=== PATIENT | female | born 1945 | race Caucasian/White ===

== ENCOUNTER 2024-09-06 05:40 | Day surgery (SDC) | payer MEDICARE, OTHER ==
[2024-09-04 08:35] VITALS: BP 169/78
[~2024-09-06] VITALS: Ht 162.6 cm; Wt 75.6 kg
[~2024-09-06 05:40] MED LIST: ALEVE220 M1 PO; ASPIRIN EC81 MG PO; ATORVASTATIN CA80 MG PO; B12 ACTIVE1000 MCG PO; CITRUCEL500 MG PO; CRESTOR40 MG PO; DAILY VITAMIN1 EAC2 PO; HYDROCHLOROTHIA25 MG PO; LEVOTHYROXINE25 MCG PO; LISINOPRIL5 MG PO; MIRALAX17 GM PO; NORCO 7.5-3251 EACH PO; OSTERA TABLET1 EACH PO; PREDNISONE10 MG PO; PRILOSEC10 MG PO
[2024-09-06 06:03] VITALS: BP 173/75
[2024-09-06] MEDS ORDERED: propofoL 200 MG/20 ML VIAL ONE (06:37)
[2024-09-06] MEDS ORDERED: LACTATED RINGER'S 1,000 ML IV SCH (07:00)
[2024-09-06] MEDS ORDERED: LIDOCAINE HCL 1% 5 ML SDV INJ ONE (07:00)
[2024-09-06] MEDS ORDERED: methylPREDNISolone SOD SUCC 40 MG/ML VIAL IV SCH (07:00)
[2024-09-06] MEDS ORDERED: IBLOOD GLUCOSE TEST STRIP 1 EA TEST VI PRN (07:00)
--- NOTE | 2024-09-06 07:27 | NUR ---
PT GONE FOR PROCEDURE. PROVIDED PRAYER.
[2024-09-06] MEDS ORDERED: LACTATED RINGER'S 1,000 ML IV ONE (08:01)
--- NOTE | 2024-09-06 08:15 | NUR ---
09/06/24 0815 Victorina Perez 0810-PATIENT ARRIVED TO PACU ON 8L MASK NONAROUSABLE ORAL AIRWAY IN PLACE LAYING LEFT LATERAL. PLACED ON 6L MASK RR EVEN. ABDOMEN SOFT. IVF INFUSING. SR WITH PVC.
[2024-09-06 08:51] VITALS: BP 169/73
--- NOTE | 2024-09-07 06:00 | OR ---
[facility] [address] [place], [place] [address] Signed DATE OF OPERATION: 09/06/2024 SURGEON: Brant Leal MD PREOPERATIVE DIAGNOSES: 1. Anemia. 2. Chronic constipation. 3. Gastroesophageal reflux disease. 4. Hyperplastic polyp in 2010 at age 65. 5. Internal hemorrhoids. POSTOPERATIVE DIAGNOSES: 1. Tiny hiatal hernia. 2. Moderate pandiverticulosis. 3. Tortuous colon. 4. Moderate internal hemorrhoids. PROCEDURES: 1. EGD with CLOtest and biopsies of the antrum. 2. Colonoscopy without biopsies. ESTIMATED BLOOD LOSS: None. INDICATIONS: Laura is an 79-year-old female, who was asked to see me for both upper and lower endoscopy. Her hemoglobin level has been slowly declining over multiple blood draws. Went as low as 11.7 with a mean cell volume of 89. Her preop hemoglobin was 12.1. She describes no upper or lower GI complaints. She talks about chronic constipation for which she uses some MiraLAX on a daily basis. She talks about acid reflux and has been on omeprazole. She had her gallbladder [place] [address] Miles.. She had a little diarrhea after that. I helped her in 2009 at the age of 65 with the diarrhea and some weight loss. The Flagyl made no difference. The cholestyramine seemed to help. Her stool studies were negative. She had a tiny hyperplastic polyp removed from the colon and was noted to have some internal hemorrhoids. She now has polymyalgia rheumatica and has been on a long prednisone taper. She gives no family history of colon cancer or polyps. She had a negative Cologuard test in 2020. She remains with good functional status. She always comes with either her friend or her sister. In the office, I gave her pamphlets on both upper and lower endoscopy. We had reviewed those together. She understands the nature of the two tests. There is risk including, but Electronically Signed By: BRANT LEAL MD 09/07/24 0600 PATIENT NAME: LAURA COOPER OPERATIVE REPORT DATE OF : 43 REPORT #: [id number] PHYSICIAN: BRANT LEAL MD PCP: SON LA MD REPORT IS CONFIDENTIAL AND NOT TO BE RELEASED WITHOUT AUTHORIZATION [facility] [address] [place] [id number] Signed not limited to gas bloating, crampy abdominal pain, bleeding, perforation requiring surgery, and missed diagnosis. We also reviewed the written instructions for bowel prep line by line. It is the same bowel prep she took back in 2009. Also, she does have a very full round face and has been on a long prednisone taper. Therefore, we asked for monitored anesthesia care with propofol infusion. She did receive some Solu-Medrol preoperative as well. She understands an adult person has to take her home afterwards. She had expressed understanding and wished to proceed. PROCEDURE IN DETAIL: Laura was taken into our endoscopy suite and placed in a supine semi-recumbent position. A bite block was utilized for the upper endoscopy. She was given monitored anesthesia care with propofol infusion per our nurse hospice team lead. The adult gastroscope was introduced and advanced under direct visualization of camera without difficulty. The duodenum and pyloric channel were unremarkable. Her distal stomach was unremarkable. We went ahead and took a biopsy from the antrum for CLOtest as well as pathologic review. Upon retroflexion of the scope, she has standard polyps from using her proton pump inhibitor. It was difficult, but she probably has just a very tiny hiatal hernia. It is better seen from above than below. The Z-line really is more or less intact. There is no Clifton's mucosa. There is no distal esophagitis. There were no ulcerations. The middle and upper esophagus were unremarkable. After this, the gas was suctioned out and the gastroscope removed. Laura tolerated the upper scope quite well. Laura was rotated into the left lateral decubitus position. She was maintained on propofol infusion per our nurse hospice team lead. A digital rectal exam was performed and this was unremarkable. No external hemorrhoids. She had good sphincter tone. There were no masses. The adult colonoscope was introduced and advanced all around into the cecum under direct visualization of the camera. It took some extra time to get through her tortuous sigmoid and left colon. We needed little abdominal compression. We finally got around the hepatic flexure and down into the cecum itself. Her prep was quite good. We could easily see the appendiceal orifice and ileocecal valve. The scope was then slowly withdrawn. She does have moderate pandiverticulosis. Her diverticula are moderate in size, moderate in number and scattered about. We came back to a tortuous left and sigmoid colon. The rectum was unremarkable. She had no polyps. Upon retroflexion of the scope, she has moderate internal hemorrhoid columns. After this, the gas was suctioned out and the colonoscope removed. Laura tolerated the procedure quite well. RECOMMENDATIONS: I will see Laura back in my office in 7 to 14 days to review her results. Electronically Signed By: BRANT LEAL MD 09/07/24 0600 PATIENT NAME: LAURA COOPER KARIME OPERATIVE REPORT DATE OF : 43 REPORT #: [id number] PHYSICIAN: BRANT LEAL MD PCP: SON LA MD REPORT IS CONFIDENTIAL AND NOT TO BE RELEASED WITHOUT AUTHORIZATION [facility] [address] [place] [address] Signed Brant Leal MD ALB/MODL /[id number] cc: MD Hannah Vo MD Robert G Johnson, MD Copies: BRANT LEAL MD, LESLIE MD JOHNSON, ROBERT D DMD ~ Electronically Signed By: BRANT LEAL MD 09/07/24 0600 PATIENT NAME: LAURA COOPER OPERATIVE REPORT DATE OF : 43 REPORT #: [id number] PHYSICIAN: BRANT LAEL MD PCP: SON LA MD REPORT IS CONFIDENTIAL AND NOT TO BE RELEASED WITHOUT AUTHORIZATION
--- NOTE | 2024-09-07 15:34 | PATH ---
[facility] [address] [facility], [place] [address] Signed SPECIMEN(S): A ANTRUM BIOPSY SPECIMEN SOURCE: A. ANTRUM BIOPSY CLINICAL HISTORY: Anemia, GERD, constipation, hiatal hernia, diverticulosis FINAL PATHOLOGIC DIAGNOSIS: Stomach, antrum, biopsy: - Gastric antral and oxyntic mucosa with no significant pathologic changes - Negative for Helicobacter pylori with HE stains BRP MICROSCOPIC EXAMINATION: Histologic sections of all submitted blocks are examined by light microscopy. These findings, together with the gross examination, support the pathologic diagnosis. GROSS DESCRIPTION: The specimen, labeled and designated "Leo, antrum biopsy," is received in formalin and consists of one boo soft tissue fragment, 0.6 cm. Entirely submitted in (A1). VB (under the direct supervision of a pathologist) The Gross Description was prepared using a voice recognition system. The report was reviewed for accuracy; however, sound-alike word errors, addition and/or deletions may occur. If there is any question about this report, please contact Client Services. ADDITIONAL NOTES: Immunohistochemical and/or in situ hybridization studies if performed in this case included appropriate positive controls that reacted as expected. This test was developed and its performance characteristics determined by [facility]. It has not been cleared or approved by the U.S. Food and Drug Administration. The FDA has determined that such clearance or approval is not necessary. This test is used for clinical purposes. It should not be regarded as investigational or for research. [facility] is certified under the Clinical Laboratory Improvement Amendments of 1988 (CLIA) as qualified to perform high complexity clinical laboratory testing. PATIENT NAME: LAURA COOPER PATHOLOGY DATE OF : 43 REPORT #: [id number] PHYSICIAN: GLORIA PATHOLOGY PCP: SON LA MD REPORT IS CONFIDENTIAL AND NOT TO BE RELEASED WITHOUT AUTHORIZATION [address] [place], [place] [address] Signed PERFORMING LABORATORY: Technical component was performed by [facility], [address] [place] [address] (CLIA# [id number]). Professional interpretation was performed by [facility] [address] [place] [id number] Diagnostician: Jovanny Flores MD Pathologist Electronically Signed 09/07/2024 Copies: ~ PATIENT NAME: LAURA COOPER PATHOLOGY DATE OF : 43 REPORT #: [id number] PHYSICIAN: GLORIA FIELDS PCP: SON LA MD REPORT IS CONFIDENTIAL AND NOT TO BE RELEASED WITHOUT AUTHORIZATION
== END 2024-09-06 08:55 | disposition home or self-care (01) ==
LOC: DS 05:40
PROVIDERS: ATTEND Colon & Rectal Surgery
PROC: 0DJD8ZZ Inspection of Lower Intestinal Tract, Via Natural or Artificial Opening Endoscopic (ICD-10-PCS; principal; 2024-09-06 07:30)
PROC: 0DB68ZX Excision of Stomach, Via Natural or Artificial Opening Endoscopic, Diagnostic (ICD-10-PCS; 2024-09-06 07:30)
DX: D64.9 Anemia, unspecified (principal); K59.09 Other constipation; K21.9 Gastro-esophageal reflux disease without esophagitis; K44.9 Diaphragmatic hernia without obstruction or gangrene; K57.30 Diverticulosis of large intestine without perforation or abscess without bleeding; K64.8 Other hemorrhoids; K63.89 Other specified diseases of intestine; M35.3 Polymyalgia rheumatica; I12.9 Hypertensive chronic kidney disease with stage 1 through stage 4 chronic kidney disease, or unspecified chronic kidney disease; N18.30 Chronic kidney disease, stage 3 unspecified; E78.2 Mixed hyperlipidemia; E03.9 Hypothyroidism, unspecified; E66.9 Obesity, unspecified; Z68.28 Body mass index [BMI] 28.0-28.9, adult; Z86.0101 Personal history of adenomatous and serrated colon polyps; Z87.891 Personal history of nicotine dependence; Z79.82 Long term (current) use of aspirin; Z79.890 Hormone replacement therapy; Z79.899 Other long term (current) drug therapy; Z90.49 Acquired absence of other specified parts of digestive tract
CPT/HCPCS: 00813; 36415; 87077; 88305; J2704; J2919; J7121

== ENCOUNTER 2025-03-27 15:00 | Emergency (ER) | payer MEDICARE, OTHER ==
[~2025-03-27] VITALS: Ht 162.6 cm; Wt 67.0 kg
--- NOTE | ~2025-03-27 | EKG ---
[facility] [address] [facility] [place], [place] [address] Draft EK completed, results pending confirmation PATIENT NAME: LAURA COOPER Electrocardiogram DATE OF : 43 PHYSICIAN: PRELIMINARY REPORT #: [id number] REPORT IS CONFIDENTIAL AND NOT TO BE RELEASED WITHOUT AUTHORIZATION
[2025-03-27] MEDS ORDERED: METOPROLOL SUCC25 MG PO (15:19)
[2025-03-27] MEDS ORDERED: CLOPIDOGREL75 MG PO (15:19)
[2025-03-27] MEDS ORDERED: NITROGLYCERIN0.4 MG SL (15:19)
--- OUTSIDE RECORDS SUMMARY | 2025-03-27 15:22 | XMS ---
PreManage Notification: LAURA COOPER Security Rib Knitter Events No recent Security Events currently on file CRITERIA MET - - 2 Visits in 30 Days CARE PROVIDERS There are no care providers on record at this time. Ranjeet has no Care Guidelines for this patient. [facility] (12 MO.) [facility] NOTE: Visits indicate total known visits. [place] [place] (12 MO.) [facility]25 15[facility] [place] [facility] COMPLAINT: - SHORTNESS OF BREATH 03/13/2025 11:47 [facility] [place] TYPE: Emergency COMPLAINT: - CHEST PAIN DIAGNOSES: - Chest pain, unspecified - Essential (primary) hypertension - Gastro-esophageal reflux disease without esophagitis - MCFP (current) use of aspirin - Non-ST elevation (NSTEMI) myocardial infarction - Other mcc (current) drug therapy - Personal history of nicotine dependence - Pure hypercholesterolemia, unspecified INPATIENT VISIT TRACKING (12 MO.) 03/13/2025 15:[address] [facility] TYPE: Intensive Care DIAGNOSES: - Essential (primary) hypertension - Hyperlipidemia, unspecified - Hypothyroidism, unspecified - Non-ST elevation (NSTEMI) myocardial infarction - NSTEMI [email or web address]
[2025-03-27 15:36] LABS: BASOPHILS 0.5 % (0.1-1.2); HEMATOCRIT 35.3 % (34.1-44.9); HEMOGLOBIN 11.3 g/dL (11.2-15.7); LYMPHOCYTES 12.9 % (19.3-51.7); MCH 30.1 PG (25.6-32.2); MCV 93.9 fL (79.4-94.8); MONOCYTES 6.6 % (4.7-12.5); NEUTROPHILS 78.1 % (34.0-71.1); PLATELET COUNT 217 K/uL (182-369); RBC 3.76 M/uL (3.93-5.22)
[2025-03-27 15:56] LABS: ALBUMIN/GLOBULIN RATIO 0.75 (1.1-2.4); BILIRUBIN, TOTAL 0.7 mg/dL (0.2-1.0); BUN/CREATININE RATIO 14.37 (6.0-28.6); CALCIUM 8.8 mg/dL (8.5-10.1); CREATININE, SERUM 1.53 mg/dL (0.55-1.02)
[2025-03-27] MEDS ORDERED: LORazepam 2 MG/ML VIAL IV ONE (16:45)
[2025-03-27] MEDS ORDERED: METOPROLOL TARTRATE 5 MG/5 ML VIAL IV ONE (17:30)
[2025-03-27] MEDS ORDERED: ONDANSETRON 4 MG TAB ODT SL ONE (20:00)
[2025-03-27] MEDS ORDERED: HYDROCODONE/ACETA 5/325 TAB PO ONE (20:00)
[2025-03-27 20:30] VITALS: BP 143/60
[2025-03-27] MEDS ORDERED: FUROSEMIDE 40 MG/4 ML VIAL IV ONE (20:30)
--- NOTE | 2025-03-29 13:23 | EKG ---
[facility] [address] [facility] [place] [address] Signed Normal sinus rhythm Right bundle branch block Abnormal ECG When compared with ECG of 13-Mar-2025 12:31:50 premature atrial complexes are no longer present Confirmed by Riaz Villa MD ([id number]) on 03/29/2025 1:22:58 PM Electronically Signed By: RIAZ VILLA MD 03/29/25 1323 PATIENT NAME: KENNETHLAURAHAILEY SCHAFFER Electrocardiogram DATE OF : 43 PHYSICIAN: RIAZ VILLA MD REPORT #: [id number] REPORT IS CONFIDENTIAL AND NOT TO BE RELEASED WITHOUT AUTHORIZATION
[2025-04-03] MEDS ORDERED: XARELTO15 MG PO (22:05)
== END 2025-03-27 20:30 | disposition short-term general hospital (02) ==
LOC: ED 15:00
PROVIDERS: Emergency Medicine
DX: R06.02 Shortness of breath (principal); I10 Essential (primary) hypertension; K21.9 Gastro-esophageal reflux disease without esophagitis; Z87.891 Personal history of nicotine dependence; Z79.82 Long term (current) use of aspirin; Z79.899 Other long term (current) drug therapy; Z79.890 Hormone replacement therapy
CPT/HCPCS: 36415; 71045; 80053; 82803; 83735; 83880; 84484; 85025; 85379; 85610; 93005; 93010; 96374; 96375; 99285-25; A9270; J2060